=== PATIENT | female | born 1955 | race Asian ===

== ENCOUNTER 2022-02-04 08:40 | Inpatient (IN) ==
[2022-02-04] MEDS ORDERED: NS 0.9% 1000 ml BAG 1,000 ML IV ONE (10:02)
[2022-02-04] MEDS ORDERED: Metoclopramide 5 MG/ML VIAL (10 mg) IV ONE (10:02)
[2022-02-04 10:30] LABS: Hematocrit 41 % (35-47); Hemoglobin 13.9 g/dL (12.0-16.0); Mean Corpuscular HGB Conc 34 g/dL (31-36); Mean Corpuscular Hemoglobin 30 pg (27-31); Mean Corpuscular Volume 89 fL (80-97); Mean Platelet Volume 8.7 fL (7.4-10.4); Platelet Count 296 10^3/uL (150-450); Red Blood Count 4.63 10^6 /uL (3.70-4.87); Red Cell Distribution Width 14 % (10-15); White Blood Count 3.3 10^3/uL (3.5-10.8)
[2022-02-04 11:04] LABS: ABS Lymphocytes 0.5 10^3/ul (1.0-4.8); ABS Monocytes 0.1 10^3/ul (0-0.8); ABS Neutrophils 2.6 10^3/ul (1.5-7.7); Eosinophil % 0.1 %; Lymphocyte % 16.1 %
[2022-02-04 11:25] LABS: TSH Ultra Thyroid Stim Horm 2.48 mcIU/mL (0.34-5.60)
[2022-02-04 11:29] LABS: Albumin/Globulin Ratio 1.5 (1-3); Calcium 7.9 mg/dL (8.6-10.3); Globulin 2.7 g/dL (2-4); Magnesium 2.2 mg/dL (1.9-2.7); Potassium 3.5 mmol/L (3.5-5.0); Total Bilirubin 1.3 mg/dL (0.2-1.0); Total Protein 6.7 g/dL (6.4-8.9); eGFR CKD-EPI 69.5 (>60)
[2022-02-04 11:38] LABS: INR 0.94 (0.86-1.15)
[2022-02-04 11:45] LABS: High Sensitivity Troponin 1 Hr 6 pg/mL (<15)
[2022-02-04] MEDS ORDERED: guaiFENesin/CODIENE 100mg/10mg 5 ML UDC PO PRN (15:29)
[2022-02-04] MEDS ORDERED: Fluticasone NASAL SPRAY 50MCG 16 gm SPRAY BTL BOTH NARES PRN (15:29)
[2022-02-04] MEDS ORDERED: Morphine 2 MG/ML SYRINGE IV PRN (15:31)
[2022-02-04 15:43] LABS: Urine Appearance Clear; Urine Bilirubin Negative (Negative); Urine Blood 1+ (Negative); Urine Color Yellow; Urine Glucose Negative (Negative); Urine Ketones Trace (Negative); Urine Nitrite Negative (Negative); Urine Protein Negative (Negative); Urine Specific Gravity 1.008 (1.002-1.030); Urine Urobilinogen Negative (Negative)
[2022-02-04] MEDS: Enoxaparin 40 MG/0.4 ML SYR SUBCUT SCH (15:49)
[2022-02-04 15:52] LABS: Urine Bacteria Absent (Absent); Urine Red Blood Cell 1+(3-5/hpf) (Absent); Urine Squamous Epithelial Cell Present (Absent); Urine White Blood Cell Trace(0-5/hpf) (Absent)
[2022-02-04] MEDS: NS 0.9% 1000 ml BAG 1,000 ML IV SCH (19:32)
[2022-02-05 06:21] LABS: ABS Lymphocytes 0.3 10^3/ul (1.0-4.8); ABS Monocytes 0.2 10^3/ul (0-0.8); ABS Neutrophils 8.6 10^3/ul (1.5-7.7); Hematocrit 38 % (35-47); Hemoglobin 12.8 g/dL (12.0-16.0); Lymphocyte % 3.1 %; Mean Corpuscular HGB Conc 34 g/dL (31-36); Mean Corpuscular Hemoglobin 30 pg (27-31); Mean Corpuscular Volume 89 fL (80-97); Mean Platelet Volume 8.5 fL (7.4-10.4); Platelet Count 261 10^3/uL (150-450); Red Blood Count 4.23 10^6 /uL (3.70-4.87); Red Cell Distribution Width 14 % (10-15); White Blood Count 9.1 10^3/uL (3.5-10.8)
[2022-02-05 06:46] LABS: Albumin 3.5 g/dL (3.2-5.2); Albumin/Globulin Ratio 1.5 (1-3); Calcium 7.4 mg/dL (8.6-10.3); Globulin 2.3 g/dL (2-4); Potassium 3.4 mmol/L (3.5-5.0); Total Bilirubin 1.6 mg/dL (0.2-1.0); Total Protein 5.8 g/dL (6.4-8.9); eGFR CKD-EPI 97.9 (>60)
[2022-02-05] MEDS: oxyCODONE/Acetamin 5/325 mg TAB PO PRN (08:30)
[2022-02-05] MEDS: Enoxaparin 40 MG/0.4 ML SYR SUBCUT SCH (08:31)
[2022-02-05] MEDS: NS 0.9% 1000 ml BAG 1,000 ML IV SCH (08:32)
[2022-02-05] MEDS ORDERED: Gadoteridol (CONTRAST) 279.3 MG/ML 10 ML IV ONE (15:45)
[2022-02-06] MEDS: oxyCODONE/Acetamin 5/325 mg TAB PO PRN (09:06)
[2022-02-06] MEDS: Enoxaparin 40 MG/0.4 ML SYR SUBCUT SCH (09:07)
[2022-02-06 11:06] VITALS: BP 135/73
== END 2022-02-06 13:05 | disposition home or self-care (01) | DRG 111 ==
LOC: ED 08:40 → EDHOLD 15:26 → MEDTELE 20:52
PROVIDERS: ADMIT Nurse Practitioner Family; ATTEND Internal Medicine Hematology & Oncology

== ENCOUNTER 2023-09-12 23:40 | Inpatient (IN) ==
[2023-09-13 00:23] LABS: Hematocrit 24.1 % (35-45); Hemoglobin 8.4 g/dL (11.5-14.3); Mean Corpuscular Hemoglobin 34.6 pg (27-33); Mean Corpuscular Hgb Conc 35.1 g/dL (31-36); Mean Corpuscular Volume 98.6 fL (80-97); Mean Platelet Volume 8.8 fL (7.5-11.2); Platelet Count 190 10^3/uL (150-450); Red Blood Count 2.44 10^6/uL (3.63-4.92)
[2023-09-13 00:40] LABS: Urine Appearance Cloudy; Urine Bilirubin Negative (Negative); Urine Blood 2+ (Negative); Urine Color Yellow; Urine Glucose Negative (Negative); Urine Ketones Negative (Negative); Urine Nitrite Negative (Negative); Urine Protein 2+(100 mg/dL) (Negative); Urine Urobilinogen Negative (Negative)
[2023-09-13 00:44] LABS: Urine Bacteria 1+ (Absent); Urine Red Blood Cell Trace(0-2/hpf) (Absent); Urine Squamous Epithelial Cell Present (Absent); Urine White Blood Cell 2+(11-20/hpf) (Absent)
[2023-09-13 00:48] LABS: Albumin 2.8 g/dL (3.2-5.2); Albumin/Globulin Ratio 0.8 (1-3); C Reactive Protein 220.81 mg/L (<8.01); Calcium 7.6 mg/dL (8.6-10.3); Creatinine, Serum 1.24 mg/dL (0.51-0.95); Globulin 3.6 g/dL (2-4); Magnesium 1.5 mg/dL (1.9-2.7); Potassium 2.7 mmol/L (3.5-5.0); Total Bilirubin 0.9 mg/dL (0.2-1.0); Total Protein 6.4 g/dL (6.4-8.9)
[2023-09-13] MEDS ORDERED: Potassium EFFERVES 25 meq TAB PO ONE (00:50)
[2023-09-13] MEDS ORDERED: cefTRIAXone 1 gm/50 mL D5W 1 GM/50 ML BAG IV ONE (01:06)
[2023-09-13] MEDS ORDERED: Vancomycin 1,500 MG in NS 0.9% 250 ml 250 ML IVPB ONE (01:06)
[2023-09-13 01:15] LABS: ABS Eosinophils 0.1 10^3/uL (0.0-0.5); ABS Lymphocytes 0.2 10^3/uL (1.0-4.8); ABS Monocytes 0.1 10^3/uL (0.0-0.9); ABS Neutrophils 3.7 10^3/uL (1.5-7.6); ABS Nucleated RBC 0.01 10^3/ul; Eosinophil % 1.6 %; Lymphocyte % 5.7 %; Nucleated Red Blood Cells % 0.3 %/100WBC (0.0-0.8)
[2023-09-13] MEDS: Enoxaparin 30 MG/0.3 ML SYR SUBCUT SCH ×3 (02:55→21:09)
[2023-09-13] MEDS ORDERED: Vancomycin 750 MG in NS 0.9% 250 ML IVPB ONE (03:00)
[2023-09-13] MEDS ORDERED: Lactated Ringers 1000 ml BAG 1,000 ML IV SCH (03:00)
[2023-09-13] MEDS ORDERED: TETRAHYDROZOLINE BOTH EYES PRN (03:07)
[2023-09-13] MEDS ORDERED: [UNRECOGNIZED DRUG - OTHER] BOTH EYES PRN (03:07)
[2023-09-13] MEDS ORDERED: Magnesium Sulf 4 GM/100 ML IV 4,000 MG/100 ML BAG IVPB ONE (03:13)
[2023-09-13] MEDS: Potassium Chlor 20 meq TAB.ER PO SCH ×2 (03:34→08:47)
[2023-09-13] MEDS ORDERED: Azithromycin 500 mg/250 ml NS 500 MG/250 ML BAG IVPB SCH (05:00)
[2023-09-13 07:01] LABS: Hematocrit 17.6 % (35-45); Hemoglobin 6.1 g/dL (11.5-14.3); Mean Corpuscular Hemoglobin 34.7 pg (27-33); Mean Corpuscular Hgb Conc 34.7 g/dL (31-36); Mean Platelet Volume 8.1 fL (7.5-11.2); Platelet Count 127 10^3/uL (150-450); Red Blood Count 1.76 10^6/uL (3.63-4.92); Red Cell Distribution Width 15.8 % (12-17); White Blood Count 3.4 10^3/uL (3.8-11.8)
[2023-09-13 07:11] LABS: Calcium 6.8 mg/dL (8.6-10.3); Creatinine, Serum 1.08 mg/dL (0.51-0.95); Magnesium 3.8 mg/dL (1.9-2.7); Potassium 2.9 mmol/L (3.5-5.0); eGFR CKD-EPI 56.7 (>60)
[2023-09-13 07:38] LABS: Osmolality Serum 270 mOsm/kg (275-295)
[2023-09-13 07:39] LABS: Urine Osmo 324 mOsm/kg (150-1150)
[2023-09-13] MEDS ORDERED: Potassium Chloride LIQUID 20 MEQ/15 ML LIQUID PO ONE (08:28)
[2023-09-13] MEDS: Senna TAB 8.6 mg TAB PO SCH ×2 (08:47→20:59)
[2023-09-13 09:14] LABS: Hematocrit 21.1 % (35-45); Hemoglobin 7.3 g/dL (11.5-14.3)
[2023-09-13 09:33] LABS: Calcium 7.1 mg/dL (8.6-10.3); Creatinine, Serum 1.11 mg/dL (0.51-0.95); Magnesium 3.3 mg/dL (1.9-2.7); Potassium 2.8 mmol/L (3.5-5.0); eGFR CKD-EPI 54.8 (>60)
[2023-09-13] MEDS ORDERED: Potassium Chlor 20 meq TAB.ER PO ONE (15:21)
[2023-09-13] MEDS: [UNRECOGNIZED DRUG - OTHER] PO SCH (15:49)
[2023-09-13 20:31] LABS: Creatinine, Serum 1.16 mg/dL (0.51-0.95); Magnesium 2.6 mg/dL (1.9-2.7); Potassium 4.2 mmol/L (3.5-5.0)
[2023-09-14] MEDS: cefTRIAXone 2 gm/50 mL D5W 2 GM/50 ML BAG IV SCH (01:05)
[2023-09-14] MEDS: Doxycycline 100 MG in NS 0.9% 250 ML BAG IVPB SCH ×2 (06:05→17:21)
[2023-09-14 06:23] LABS: ABS Lymphocytes 0.2 10^3/uL (1.0-4.8); ABS Monocytes 0.2 10^3/uL (0.0-0.9); ABS Neutrophils 3.9 10^3/uL (1.5-7.6); ABS Nucleated RBC 0.01 10^3/ul; Eosinophil % 0.4 %; Hematocrit 22.7 % (35-45); Hemoglobin 7.9 g/dL (11.5-14.3); Lymphocyte % 4.2 %; Mean Corpuscular Hgb Conc 34.9 g/dL (31-36); Mean Corpuscular Volume 100.1 fL (80-97); Mean Platelet Volume 9.6 fL (7.5-11.2); Nucleated Red Blood Cells % 0.2 %/100WBC (0.0-0.8); Platelet Count 151 10^3/uL (150-450); Red Blood Count 2.27 10^6/uL (3.63-4.92); Red Cell Distribution Width 15.7 % (12-17); White Blood Count 4.3 10^3/uL (3.8-11.8)
[2023-09-14 06:45] LABS: Albumin 2.4 g/dL (3.2-5.2); Albumin/Globulin Ratio 0.8 (1-3); Calcium 7.1 mg/dL (8.6-10.3); Creatinine, Serum 1.07 mg/dL (0.51-0.95); Globulin 3.1 g/dL (2-4); Magnesium 2.4 mg/dL (1.9-2.7); Potassium 4.2 mmol/L (3.5-5.0); Total Bilirubin 0.4 mg/dL (0.2-1.0); Total Protein 5.5 g/dL (6.4-8.9); eGFR CKD-EPI 57.3 (>60)
[2023-09-14] MEDS ORDERED: [UNRECOGNIZED DRUG - OTHER] PO SCH (08:00)
[2023-09-14] MEDS: Senna TAB 8.6 mg TAB PO SCH ×2 (10:27→20:46)
[2023-09-14] MEDS: Enoxaparin 30 MG/0.3 ML SYR SUBCUT SCH (20:49)
[2023-09-15] MEDS: cefTRIAXone 2 gm/50 mL D5W 2 GM/50 ML BAG IV SCH (01:15)
[2023-09-15] MEDS: Doxycycline 100 MG in NS 0.9% 250 ML BAG IVPB SCH (06:03)
[2023-09-15] MEDS: [UNRECOGNIZED DRUG - OTHER] PO SCH ×2 (07:12→07:16)
[2023-09-15] MEDS: Senna TAB 8.6 mg TAB PO SCH ×2 (07:45→22:43)
[2023-09-15 08:59] LABS: Hematocrit 22.3 % (35-45); Hemoglobin 7.8 g/dL (11.5-14.3); Mean Corpuscular Hemoglobin 34.9 pg (27-33); Mean Corpuscular Hgb Conc 34.8 g/dL (31-36); Mean Corpuscular Volume 100.4 fL (80-97); Mean Platelet Volume 9.8 fL (7.5-11.2); Platelet Count 157 10^3/uL (150-450); Red Blood Count 2.22 10^6/uL (3.63-4.92); White Blood Count 4.5 10^3/uL (3.8-11.8)
[2023-09-15 09:24] LABS: Calcium 7.1 mg/dL (8.6-10.3); Creatinine, Serum 0.9 mg/dL (0.51-0.95); Potassium 3.5 mmol/L (3.5-5.0); eGFR CKD-EPI 70.5 (>60)
[2023-09-15 10:46] LABS: ABS Lymphocytes 0.2 10^3/uL (1.0-4.8); ABS Monocytes 0.1 10^3/uL (0.0-0.9); ABS Neutrophils 4.1 10^3/uL (1.5-7.6); ABS Nucleated RBC 0.01 10^3/ul; Anisocytosis 1+; Eosinophil % 0.5 %; Macrocytosis 1+; Nucleated Red Blood Cells % 0.2 %/100WBC (0.0-0.8)
[2023-09-15] MEDS: Enoxaparin 30 MG/0.3 ML SYR SUBCUT SCH (22:43)
[2023-09-16] MEDS: cefTRIAXone 2 gm/50 mL D5W 2 GM/50 ML BAG IV SCH (01:30)
[2023-09-16] MEDS: [UNRECOGNIZED DRUG - OTHER] PO SCH ×2 (05:49→05:50)
[2023-09-16 05:57] LABS: Hematocrit 20.3 % (35-45); Hemoglobin 7.1 g/dL (11.5-14.3); Mean Corpuscular Hemoglobin 34.7 pg (27-33); Mean Corpuscular Hgb Conc 34.8 g/dL (31-36); Mean Corpuscular Volume 99.9 fL (80-97); Mean Platelet Volume 9.4 fL (7.5-11.2); Platelet Count 161 10^3/uL (150-450); Red Blood Count 2.03 10^6/uL (3.63-4.92); Red Cell Distribution Width 15.8 % (12-17); White Blood Count 4.1 10^3/uL (3.8-11.8)
[2023-09-16 06:13] LABS: Creatinine, Serum 0.82 mg/dL (0.51-0.95); Potassium 3.3 mmol/L (3.5-5.0); eGFR CKD-EPI 78.8 (>60)
[2023-09-16] MEDS ORDERED: Potassium Chlor 20 meq TAB.ER PO ONE (08:42)
[2023-09-16] MEDS: Senna TAB 8.6 mg TAB PO SCH ×2 (09:35→23:05)
[2023-09-16] MEDS: methylPREDNISolone SOD SUCC 40 mg/ml 1 ml VIAL IV SCH (12:34)
[2023-09-16] MEDS: Acetylcysteine INHALATION SOL 200 MG/ML NEB.SOLN 10 ML INH SCH ×2 (17:05→18:43)
[2023-09-16] MEDS ORDERED: Gadoteridol (CONTRAST) 279.3 MG/ML 10 ML IV ONE (20:01)
[2023-09-16] MEDS: Enoxaparin 30 MG/0.3 ML SYR SUBCUT SCH (23:06)
[2023-09-17] MEDS: Acetylcysteine INHALATION SOL 200 MG/ML NEB.SOLN 10 ML INH SCH (00:11)
[2023-09-17] MEDS ORDERED: Acetylcysteine INH SOL (RT) 200 MG/ML 4 ML VIAL INH PRN (00:14)
[2023-09-17] MEDS: cefTRIAXone 2 gm/50 mL D5W 2 GM/50 ML BAG IV SCH (02:02)
[2023-09-17 06:43] LABS: Calcium 7.8 mg/dL (8.6-10.3); Creatinine, Serum 0.78 mg/dL (0.51-0.95); eGFR CKD-EPI 83.7 (>60)
[2023-09-17 07:01] LABS: Hematocrit 19.9 % (35-45); Hemoglobin 6.9 g/dL (11.5-14.3); Mean Corpuscular Hemoglobin 34.4 pg (27-33); Mean Corpuscular Hgb Conc 34.5 g/dL (31-36); Mean Corpuscular Volume 99.8 fL (80-97); Mean Platelet Volume 9.6 fL (7.5-11.2); Platelet Count 167 10^3/uL (150-450); Red Cell Distribution Width 15.8 % (12-17); White Blood Count 4.3 10^3/uL (3.8-11.8)
[2023-09-17] MEDS: Senna TAB 8.6 mg TAB PO SCH ×2 (09:28→21:41)
[2023-09-17] MEDS: methylPREDNISolone SOD SUCC 40 mg/ml 1 ml VIAL IV SCH (09:43)
[2023-09-17 09:57] LABS: ABS Lymphocytes 0.2 10^3/uL (1.0-4.8); ABS Monocytes 0.2 10^3/uL (0.0-0.9); ABS Nucleated RBC 0.01 10^3/ul; Anisocytosis 1+; Eosinophil % 0.1 %; Lymphocyte % 4.3 %; Nucleated Red Blood Cells % 0.2 %/100WBC (0.0-0.8)
[2023-09-17] MEDS ORDERED: Acetylcysteine INHALATION SOL 200 MG/ML NEB.SOLN 10 ML INH SCH (13:00)
[2023-09-17] MEDS ORDERED: Acetylcysteine INHALATION SOL 200 MG/ML NEB.SOLN 10 ML INH PRN (18:46)
[2023-09-17] MEDS: Enoxaparin 30 MG/0.3 ML SYR SUBCUT SCH (21:41)
[2023-09-18] MEDS: cefTRIAXone 2 gm/50 mL D5W 2 GM/50 ML BAG IV SCH (01:12)
[2023-09-18 07:22] LABS: Hematocrit 24.5 % (35-45); Hemoglobin 8.6 g/dL (11.5-14.3); Mean Corpuscular Hemoglobin 33.2 pg (27-33); Mean Corpuscular Hgb Conc 35.1 g/dL (31-36); Mean Corpuscular Volume 94.7 fL (80-97); Mean Platelet Volume 9.6 fL (7.5-11.2); Platelet Count 155 10^3/uL (150-450); Red Blood Count 2.59 10^6/uL (3.63-4.92); Red Cell Distribution Width 18.8 % (12-17); White Blood Count 6.2 10^3/uL (3.8-11.8)
[2023-09-18 07:36] LABS: Calcium 8.1 mg/dL (8.6-10.3); Creatinine, Serum 0.7 mg/dL (0.51-0.95); Potassium 3.4 mmol/L (3.5-5.0); eGFR CKD-EPI 95.3 (>60)
[2023-09-18] MEDS ORDERED: Potassium Chlor 20 meq TAB.ER PO ONE (07:50)
[2023-09-18] MEDS ORDERED: Albuterol 2.5mg/3 ml (0.083%) NEB.SOLN INH PRN (09:08)
[2023-09-18] MEDS: methylPREDNISolone SOD SUCC 40 mg/ml 1 ml VIAL IV SCH (10:15)
[2023-09-18 10:35] LABS: RBC Morphology Normal (Normal)
[2023-09-18 10:40] LABS: ABS Eosinophils 0.1 10^3/ul (0.0-0.5); ABS Lymphocytes 0.1 10^3/ul (1.0-4.8); ABS Monocytes 0.2 10^3/ul (0.0-0.9); ABS Neutrophils 5.9 10^3/ul (1.5-7.6)
[2023-09-18] MEDS: Enoxaparin 30 MG/0.3 ML SYR SUBCUT SCH (20:46)
[2023-09-19] MEDS: cefTRIAXone 2 gm/50 mL D5W 2 GM/50 ML BAG IV SCH (01:39)
[2023-09-19 06:55] LABS: Hematocrit 22.8 % (35-45); Mean Corpuscular Hemoglobin 33.4 pg (27-33); Mean Corpuscular Hgb Conc 35.2 g/dL (31-36); Mean Corpuscular Volume 94.8 fL (80-97); Mean Platelet Volume 9.5 fL (7.5-11.2); Platelet Count 137 10^3/uL (150-450); Red Cell Distribution Width 18.7 % (12-17); White Blood Count 7.1 10^3/uL (3.8-11.8)
[2023-09-19 07:57] LABS: ABS Lymphocytes 0.1 10^3/uL (1.0-4.8); ABS Nucleated RBC 0.09 10^3/ul; Eosinophil % 0.4 %; Lymphocyte % 0.9 %; Nucleated Red Blood Cells % 1.3 %/100WBC (0.0-0.8); Polychromasia 1+
[2023-09-19] MEDS: methylPREDNISolone SOD SUCC 40 mg/ml 1 ml VIAL IV SCH (09:33)
[2023-09-19] MEDS: Enoxaparin 30 MG/0.3 ML SYR SUBCUT SCH (21:39)
[2023-09-20] MEDS: cefTRIAXone 2 gm/50 mL D5W 2 GM/50 ML BAG IV SCH (01:16)
[2023-09-20 06:19] LABS: Calcium 7.5 mg/dL (8.6-10.3); Creatinine, Serum 0.6 mg/dL (0.51-0.95); Magnesium 1.4 mg/dL (1.9-2.7); Potassium 2.9 mmol/L (3.5-5.0); eGFR CKD-EPI 98.9 (>60)
[2023-09-20 06:22] LABS: ABS Lymphocytes 0.1 10^3/uL (1.0-4.8); ABS Monocytes 0.1 10^3/uL (0.0-0.9); ABS Neutrophils 6.7 10^3/uL (1.5-7.6); ABS Nucleated RBC 0.14 10^3/ul; Eosinophil % 0.1 %; Hematocrit 22.6 % (35-45); Hemoglobin 7.9 g/dL (11.5-14.3); Lymphocyte % 1.5 %; Mean Corpuscular Hemoglobin 32.9 pg (27-33); Mean Corpuscular Hgb Conc 34.7 g/dL (31-36); Mean Corpuscular Volume 94.8 fL (80-97); Mean Platelet Volume 9.5 fL (7.5-11.2); Nucleated Red Blood Cells % 2.1 %/100WBC (0.0-0.8); Platelet Count 141 10^3/uL (150-450); Red Blood Count 2.39 10^6/uL (3.63-4.92); Red Cell Distribution Width 18.8 % (12-17); White Blood Count 6.9 10^3/uL (3.8-11.8)
[2023-09-20] MEDS ORDERED: Potassium Chlor 20 meq TAB.ER PO ONE ×2 (07:44→13:00)
[2023-09-20] MEDS ORDERED: Magnesium Sulf 4 GM/100 ML IV 4,000 MG/100 ML BAG IVPB ONE (09:00)
[2023-09-20] MEDS: methylPREDNISolone SOD SUCC 40 mg/ml 1 ml VIAL IV SCH (10:35)
[2023-09-20] MEDS: Enoxaparin 30 MG/0.3 ML SYR SUBCUT SCH (20:01)
[2023-09-20 20:38] LABS: Calcium 7.6 mg/dL (8.6-10.3); Creatinine, Serum 0.8 mg/dL (0.51-0.95); Magnesium 2.7 mg/dL (1.9-2.7); Potassium 4.8 mmol/L (3.5-5.0); eGFR CKD-EPI 81.2 (>60)
[2023-09-21] MEDS: cefTRIAXone 2 gm/50 mL D5W 2 GM/50 ML BAG IV SCH (01:03)
[2023-09-21 06:35] LABS: Calcium 7.3 mg/dL (8.6-10.3); Creatinine, Serum 0.59 mg/dL (0.51-0.95); Magnesium 2.2 mg/dL (1.9-2.7); Potassium 3.7 mmol/L (3.5-5.0); eGFR CKD-EPI 99.3 (>60)
[2023-09-21 06:36] LABS: Hematocrit 22.7 % (35-45); Hemoglobin 7.8 g/dL (11.5-14.3); Mean Corpuscular Hemoglobin 33.1 pg (27-33); Mean Corpuscular Hgb Conc 34.5 g/dL (31-36); Mean Platelet Volume 9.3 fL (7.5-11.2); Platelet Count 162 10^3/uL (150-450); Red Blood Count 2.36 10^6/uL (3.63-4.92); Red Cell Distribution Width 17.9 % (12-17); White Blood Count 7.1 10^3/uL (3.8-11.8)
[2023-09-21 06:49] LABS: ABS Lymphocytes 0.1 10^3/uL (1.0-4.8); ABS Monocytes 0.3 10^3/uL (0.0-0.9); ABS Neutrophils 6.7 10^3/uL (1.5-7.6); Eosinophil % 0.1 %; Lymphocyte % 1.6 %
[2023-09-21] MEDS ORDERED: Potassium Chlor 20 meq TAB.ER PO ONE (09:00)
[2023-09-21] MEDS: methylPREDNISolone SOD SUCC 40 mg/ml 1 ml VIAL IV SCH (10:28)
[2023-09-21] MEDS: Enoxaparin 30 MG/0.3 ML SYR SUBCUT SCH (20:07)
[2023-09-22] MEDS: cefTRIAXone 2 gm/50 mL D5W 2 GM/50 ML BAG IV SCH (00:46)
[2023-09-22 07:29] LABS: ABS Lymphocytes 0.4 10^3/uL (1.0-4.8); ABS Monocytes 0.4 10^3/uL (0.0-0.9); ABS Neutrophils 6.5 10^3/uL (1.5-7.6); Eosinophil % 0.1 %; Hematocrit 23.4 % (35-45); Mean Corpuscular Hemoglobin 32.9 pg (27-33); Mean Corpuscular Hgb Conc 34.2 g/dL (31-36); Mean Corpuscular Volume 96.1 fL (80-97); Mean Platelet Volume 9.1 fL (7.5-11.2); Nucleated Red Blood Cells % 2.7 %/100WBC (0.0-0.8); Platelet Count 174 10^3/uL (150-450); Red Blood Count 2.44 10^6/uL (3.63-4.92); Red Cell Distribution Width 17.7 % (12-17); White Blood Count 7.3 10^3/uL (3.8-11.8)
[2023-09-22 07:44] LABS: Calcium 6.9 mg/dL (8.6-10.3); Creatinine, Serum 0.54 mg/dL (0.51-0.95); Magnesium 1.9 mg/dL (1.9-2.7); Potassium 3.6 mmol/L (3.5-5.0); eGFR CKD-EPI 101.5 (>60)
[2023-09-22] MEDS ORDERED: Furosemide 20 mg/2 ml IV VIAL IV ONE (09:31)
[2023-09-22] MEDS: methylPREDNISolone SOD SUCC 40 mg/ml 1 ml VIAL IV SCH (09:33)
[2023-09-22] MEDS: Enoxaparin 30 MG/0.3 ML SYR SUBCUT SCH (20:20)
[2023-09-23] MEDS: cefTRIAXone 2 gm/50 mL D5W 2 GM/50 ML BAG IV SCH ×2 (00:38→22:01)
[2023-09-23] MEDS ORDERED: Sodium Chloride(INHALANT) 7% 4 ML NEB.SOLN INH PRN (16:09)
[2023-09-23] MEDS: Sodium Chloride(INHALANT) 3% 4 ML NEB.SOLN INH SCH ×2 (17:01→19:37)
[2023-09-23] MEDS: Enoxaparin 30 MG/0.3 ML SYR SUBCUT SCH (22:04)
[2023-09-24 08:36] LABS: ABS Basophils 0.1 10^3/uL (0.0-0.1); ABS Lymphocytes 0.6 10^3/uL (1.0-4.8); ABS Monocytes 0.7 10^3/uL (0.0-0.9); ABS Neutrophils 5.8 10^3/uL (1.5-7.6); ABS Nucleated RBC 0.18 10^3/ul; Hematocrit 23.4 % (35-45); Lymphocyte % 8.1 %; Mean Corpuscular Hgb Conc 34.4 g/dL (31-36); Mean Corpuscular Volume 95.9 fL (80-97); Mean Platelet Volume 8.8 fL (7.5-11.2); Nucleated Red Blood Cells % 2.6 %/100WBC (0.0-0.8); Platelet Count 225 10^3/uL (150-450); Red Blood Count 2.44 10^6/uL (3.63-4.92); Red Cell Distribution Width 18.2 % (12-17); White Blood Count 7.1 10^3/uL (3.8-11.8)
[2023-09-24 08:50] LABS: Calcium 6.8 mg/dL (8.6-10.3); Creatinine, Serum 0.55 mg/dL (0.51-0.95); Potassium 2.9 mmol/L (3.5-5.0)
[2023-09-24] MEDS: Sodium Chloride(INHALANT) 3% 4 ML NEB.SOLN INH SCH ×4 (10:19→19:33)
[2023-09-24] MEDS: cefTRIAXone 2 gm/50 mL D5W 2 GM/50 ML BAG IV SCH (20:45)
[2023-09-24] MEDS ORDERED: Potassium Chloride LIQUID 20 MEQ/15 ML LIQUID PO ONE (20:48)
[2023-09-24] MEDS: Enoxaparin 30 MG/0.3 ML SYR SUBCUT SCH (20:48)
[2023-09-24] MEDS ORDERED: KCL 20 MEQ/100 ML IVPREMIX 20 MEQ/100 ML BAG IV SCH (23:00)
[2023-09-25] MEDS ORDERED: Potassium Chlor 20 meq TAB.ER PO ONE (00:55)
[2023-09-25 06:50] LABS: ABS Lymphocytes 0.6 10^3/uL (1.0-4.8); ABS Monocytes 0.7 10^3/uL (0.0-0.9); ABS Neutrophils 4.9 10^3/uL (1.5-7.6); ABS Nucleated RBC 0.22 10^3/ul; Eosinophil % 0.1 %; Hematocrit 23.6 % (35-45); Hemoglobin 8.1 g/dL (11.5-14.3); Lymphocyte % 9.9 %; Mean Corpuscular Hemoglobin 32.9 pg (27-33); Mean Corpuscular Hgb Conc 34.6 g/dL (31-36); Mean Corpuscular Volume 95.3 fL (80-97); Mean Platelet Volume 8.6 fL (7.5-11.2); Nucleated Red Blood Cells % 3.6 %/100WBC (0.0-0.8); Platelet Count 226 10^3/uL (150-450); Red Blood Count 2.47 10^6/uL (3.63-4.92); Red Cell Distribution Width 17.8 % (12-17); White Blood Count 6.2 10^3/uL (3.8-11.8)
[2023-09-25 07:06] LABS: Calcium 6.7 mg/dL (8.6-10.3); Creatinine, Serum 0.55 mg/dL (0.51-0.95); Magnesium 1.7 mg/dL (1.9-2.7); Potassium 3.2 mmol/L (3.5-5.0)
[2023-09-25] MEDS: Sodium Chloride(INHALANT) 3% 4 ML NEB.SOLN INH SCH ×4 (07:33→18:38)
[2023-09-25] MEDS ORDERED: Potassium Chloride LIQUID 20 MEQ/15 ML LIQUID PO ONE (07:56)
[2023-09-25] MEDS ORDERED: Magnesium Sulfate 2 gm BAG 2 GM/50 ML BAG IVPB ONE (07:56)
[2023-09-25] MEDS ORDERED: Naloxone 0.4 mg VIAL 0.4 mg/ml 1 ml VIAL IV PRN (10:50)
[2023-09-25] MEDS ORDERED: Potassium Chlor 10 meq TAB PO ONE (12:00)
[2023-09-25 16:20] LABS: TB1 Ag minus Nil Result -0.01 IU/mL
[2023-09-25 16:27] LABS: QuantiferonTb Gold Plus Result Indeterminate (Negative)
[2023-09-25] MEDS: cefTRIAXone 2 gm/50 mL D5W 2 GM/50 ML BAG IV SCH (21:46)
[2023-09-25] MEDS: Enoxaparin 30 MG/0.3 ML SYR SUBCUT SCH (21:49)
[2023-09-26] MEDS ORDERED: Buffered Lidocaine 1% SYRIN 1 ml INTRADERM ONE (06:00)
[2023-09-26] MEDS ORDERED: Lactated Ringers 1000 ml BAG 1,000 ML IV SCH (06:00)
[2023-09-26 06:26] LABS: Calcium 6.6 mg/dL (8.6-10.3); Creatinine, Serum 0.61 mg/dL (0.51-0.95); Magnesium 1.9 mg/dL (1.9-2.7); Potassium 3.2 mmol/L (3.5-5.0); eGFR CKD-EPI 98.5 (>60)
[2023-09-26] MEDS: Sodium Chloride(INHALANT) 3% 4 ML NEB.SOLN INH SCH (08:27)
[2023-09-26] MEDS ORDERED: Lidocaine 2% JELLY 6 ML Topical TOPICAL ONE (10:23)
[2023-09-26] MEDS ORDERED: Benzocaine/Butamben/Tetracain (CETACAINE - SINGLE USE) 5 gm TOPICAL ONE (10:23)
[2023-09-26] MEDS ORDERED: Lidocaine 2% PF 5 ML VIAL ONE ×2 (10:23→10:58)
[2023-09-26] MEDS ORDERED: Rocuronium 50 mg VIAL 10 mg/ml 5 ml VIAL (50 mg) ONE (10:55)
[2023-09-26] MEDS ORDERED: Midazolam 2 mg/2 ml VIAL 1 mg/ml 2 ml VIAL (2 mg) ONE (10:56)
[2023-09-26] MEDS ORDERED: fentaNYL 100 mcg/2 ml 50 MCG/ML VIAL ONE (10:56)
[2023-09-26] MEDS ORDERED: Acetaminophen IV 1 GM/100ML 0 MG/0 ML BAG IV ONE (10:58)
[2023-09-26] MEDS ORDERED: Propofol 10 MG/ML 20 ML BTL ONE ×2 (10:59→11:40)
[2023-09-26] MEDS ORDERED: Dexamethasone IV 4 MG/ML VIAL 1 ml VIAL ONE (11:44)
[2023-09-26] MEDS ORDERED: Ondansetron 4 mg VIAL 2 MG/ML 2 ml VIAL ONE (11:44)
[2023-09-26] MEDS: Potassium Chlor 20 meq TAB.ER PO SCH (15:50)
[2023-09-26] MEDS: cefTRIAXone 2 gm/50 mL D5W 2 GM/50 ML BAG IV SCH (22:57)
[2023-09-26] MEDS: Enoxaparin 30 MG/0.3 ML SYR SUBCUT SCH (22:58)
[2023-09-27] MEDS: Enoxaparin 30 MG/0.3 ML SYR SUBCUT SCH (21:59)
[2023-09-27] MEDS: cefTRIAXone 2 gm/50 mL D5W 2 GM/50 ML BAG IV SCH (22:20)
[2023-09-28] MEDS: Enoxaparin 30 MG/0.3 ML SYR SUBCUT SCH (21:33)
[2023-09-28] MEDS: cefTRIAXone 2 gm/50 mL D5W 2 GM/50 ML BAG IV SCH (21:33)
[2023-09-29 07:31] LABS: Calcium 6.4 mg/dL (8.6-10.3); Creatinine, Serum 0.63 mg/dL (0.51-0.95); Magnesium 1.5 mg/dL (1.9-2.7); eGFR CKD-EPI 97.8 (>60)
[2023-09-29] MEDS ORDERED: Magnesium Sulfate IV 1GM/100ML 1 GM/100 ML BAG IV ONE (07:33)
[2023-09-29] MEDS ORDERED: Calcium Carb (TUMS) 500 mg CHEW TAB PO ONE ×2 (07:45→13:48)
[2023-09-29 07:58] LABS: Albumin 2.6 g/dL (3.2-5.2); Albumin/Globulin Ratio 0.8 (1-3); Globulin 3.2 g/dL (2-4); Total Bilirubin 0.4 mg/dL (0.2-1.0); Total Protein 5.8 g/dL (6.4-8.9)
[2023-09-29 09:26] LABS: Hematocrit 23.5 % (35-45); Hemoglobin 8.1 g/dL (11.5-14.3); Mean Corpuscular Hemoglobin 33.2 pg (27-33); Mean Corpuscular Hgb Conc 34.3 g/dL (31-36); Mean Corpuscular Volume 96.7 fL (80-97); Mean Platelet Volume 8.5 fL (7.5-11.2); Platelet Count 264 10^3/uL (150-450); Red Blood Count 2.43 10^6/uL (3.63-4.92); Red Cell Distribution Width 18.7 % (12-17); White Blood Count 6.3 10^3/uL (3.8-11.8)
[2023-09-29] MEDS: KCL 20 MEQ/100 ML IVPREMIX 20 MEQ/100 ML BAG IV SCH ×2 (10:49→13:21)
[2023-09-29 11:07] LABS: ABS Lymphocytes 0.2 10^3/ul (1.0-4.8); ABS Monocytes 0.5 10^3/ul (0.0-0.9); ABS Neutrophils 5.6 10^3/ul (1.5-7.6); Anisocytosis 2+; Polychromasia 1+
[2023-09-29] MEDS ORDERED: Magnesium Sulfate 2 gm BAG 2 GM/50 ML BAG IVPB ONE (12:58)
[2023-09-29] MEDS: Potassium Chlor 20 meq TAB.ER PO SCH ×2 (14:13→16:06)
[2023-09-29 17:47] LABS: High Sensitivity Troponin 1 Hr 16 pg/mL (<15)
[2023-09-29] MEDS: Lidocaine PATCH 5% PATCH TRANSDERM SCH ×2 (20:57→21:57)
[2023-09-29] MEDS: Amoxicillin/Clavul 500/125 TAB (Augmentin 500 mg tab) PO SCH (20:57)
[2023-09-29] MEDS: Enoxaparin 30 MG/0.3 ML SYR SUBCUT SCH (20:57)
[2023-09-30 08:05] LABS: Albumin 2.6 g/dL (3.2-5.2); Albumin/Globulin Ratio 0.8 (1-3); Calcium 6.6 mg/dL (8.6-10.3); Creatinine, Serum 0.63 mg/dL (0.51-0.95); Globulin 3.2 g/dL (2-4); Magnesium 2.1 mg/dL (1.9-2.7); Total Bilirubin 0.5 mg/dL (0.2-1.0); Total Protein 5.8 g/dL (6.4-8.9); eGFR CKD-EPI 97.8 (>60)
[2023-09-30] MEDS ORDERED: Calcium Carb (TUMS) 500 mg CHEW TAB PO ONE (08:21)
[2023-09-30] MEDS: Amoxicillin/Clavul 500/125 TAB (Augmentin 500 mg tab) PO SCH (09:50)
[2023-09-30] MEDS: Lidocaine PATCH 5% PATCH TRANSDERM SCH (09:52)
[2023-09-30 09:55] VITALS: BP 108/73
[2023-09-30] MEDS ORDERED: CALCIUM GLUCONATE 1GM/50ML NS 1 GM/50 ML BAG IV ONE (10:02)
== END 2023-09-30 13:45 | disposition home or self-care (01) | DRG 720 ==
LOC: EDHOLD 23:40 → ED 23:40 → SUATTDRO 09-13 02:37 → MED 09-13 16:33 → SUATTDRO 09-14 13:57 → MED 09-22 10:25
PROVIDERS: ADMIT Internal Medicine; ATTEND Internal Medicine